=== PATIENT | female | born 1960 | race Caucasian/White ===

== ENCOUNTER 2019-07-01 22:25 | Emergency (ER) | payer BC ==
[2019-07-01] MEDS ORDERED: Aspirin 81 MG Tab.Chew PO ONE (22:51)
--- NOTE | 2019-07-01 22:53 | EDM.PDOC ---
ED HPI GENERAL MEDICAL PROBLEM - General Chief Complaint: Abdominal Pain Stated Complaint: CHEST PAIN SOME PAIN ON RIGHT SIDE Time Seen by Provider: 07/01/19 22:46 Source of Information: Reports: Patient, Family, Old Records, RN Notes Reviewed History Limitations: Reports: No Limitations - History of Present Illness INITIAL COMMENTS - FREE TEXT/NARRATIVE: 58-year-old female presents emergency department today complaint of epigastric pain, she states the pain is been going on and off for the last 24 hours yesterday did have some chest pain took some Mylanta which helped her sleep through the night however the pain has returned she finds no relationship to food no history of heart troubles no tobacco use family history mother in her 90s with a myocardial infarction Epigastric Pain Score (Numeric/FACES): 8 - Related Data Allergies Allergy/AdvReac Type Severity Reaction Status Date / Time tetracycline [Tetracycline] Allergy Chest Verified 07/01/19 22:37 Tightness Home Meds: Home Meds Losartan [Cozaar] 50 mg PO DAILY 07/01/19 [History] Past Medical History Cardiovascular History: Reports: Hypertension [employer] History: Reports: - Infectious Disease History Infectious Disease History: Reports: Other (See Below) Other Infectious Disease History: states unknown Social & Family History - Tobacco Use Smoking Status *Q: Never Smoker - Caffeine Use Caffeine Use: Reports: Coffee - Recreational Drug Use Recreational Drug Use: No ED ROS GENERAL - Review of Systems Review Of Systems: See Below Constitutional: Reports: No Symptoms. Denies: Diaphoresis HEENT: Reports: No Symptoms Respiratory: Reports: No Symptoms Cardiovascular: Reports: Chest Pain GI/Abdominal: Reports: Abdominal Pain. Denies: Nausea ED EXAM, GENERAL - Physical Exam Exam: See Below Exam Limited By: No Limitations General Appearance: Alert, WD/WN, No Apparent Distress Throat/Mouth: No Airway Compromise Neck: Normal Inspection, Supple, Non-Tender, Full Range of Motion Respiratory/Chest: No Respiratory Distress, Lungs Clear, Normal Breath Sounds, No Accessory Muscle Use, Chest Non-Tender Cardiovascular: Regular Rate, Rhythm, No Murmur GI/Abdominal: Soft, Tender (Tender epigastric region) Course - Vital Signs Last Recorded V/S: Last Vital Signs Temp 98.6 F 07/01/19 22:30 Pulse 70 07/01/19 23:43 Resp 16 07/01/19 23:43 BP 134/76 07/01/19 23:43 Pulse Ox 97 07/01/19 23:43 - Orders/Labs/Meds Orders: Active Orders 24 hr Category Date Time Status Cardiac Monitoring [RC] .As Directed Care 07/01/19 22:51 Active EKG Documentation Completion [RC] ASDIRECTED Care 07/01/19 22:51 Active EKG 12 Lead [EK] Stat Ther 07/01/19 22:51 Ordered Labs: Laboratory Tests 07/01/19 07/01/19 07/02/19 Range/Units 22:55 22:55 00:20 WBC 5.3 (4.5-11.0) K/uL RBC 4.20 (3.30-5.50) M/uL Hgb 12.1 (12.0-15.0) g/dL Hct 37.3 (36.0-48.0) % MCV 89 (80-98) fL MCH 29 (27-31) pg MCHC 32 (32-36) % Plt Count 233 (150-400) K/uL Neut % (Auto) 67 H (36-66) % Lymph % (Auto) 24 (24-44) % [place] % (Auto) 8 H (2-6) % Eos % (Auto) 1 L (2-4) % Baso % (Auto) 0 (0-1) % Sodium 143 (140-148) mmol/L Potassium 3.4 L (3.6-5.2) mmol/L Chloride 106 (100-108) mmol/L Carbon Dioxide 28 (21-32) mmol/L Anion Gap 12.4 (5.0-14.0) mmol/L BUN 14 (7-18) mg/dL Creatinine 0.9 (0.6-1.0) mg/dL Est Cr Clr Drug Dosing 49.32 mL/min Estimated GFR (MDRD) > 60 (>60) Glucose 140 H (74-106) mg/dL Calcium 9.1 (8.5-10.1) mg/dL Total Bilirubin 0.3 (0.2-1.0) mg/dL AST 18 (15-37) U/L ALT 25 (12-78) U/L Alkaline Phosphatase 64 (46-116) U/L Troponin I < 0.017 (0.000-0.056) ng/mL Total Protein 6.8 (6.4-8.2) g/dL Albumin 3.9 (3.4-5.0) g/dL Globulin 2.9 (2.3-3.5) g/dL Albumin/Globulin Ratio 1.3 (1.2-2.2) Lipase 147 (73-393) U/L Meds: Medications Discontinued Medications Generic Name Dose Route Start Last Admin Trade Name Padmini PRN Reason Stop Dose Admin Aspirin 324 mg 07/01/19 22:51 07/01/19 23:09 Aspirin PO 07/01/19 22:52 324 mg ONETIME ONE Administration Al Hydroxide/Mg Hydroxide 15 0 ml 07/02/19 00:16 07/02/19 00:21 ml/ Lidocaine HCl 15 ml PO 07/02/19 00:17 30 ml ONETIME ONE Administration Departure - Departure Time of Disposition: 00:53 Disposition: Home, Self-Care 01 Condition: Fair Clinical Impression: Abdominal pain Qualifiers: Abdominal location: epigastric Qualified Code(s): R10.13 - Epigastric pain Referrals: Becky Bernal CNM [Primary Care Provider] - Forms: ED Department Discharge Additional Instructions: Recommend avoiding fatty foods, please report to the out patient radiology for your ultrasound on Saturday I will contact you with results on Saturday evening - My Orders Last 24 Hours: My Active Orders 07/01/19 22:51 Cardiac Monitoring [RC] .As Directed EKG Documentation Completion [RC] ASDIRECTED EKG 12 Lead [EK] Stat - Assessment/Plan Last 24 Hours: My Active Orders 07/01/19 22:51 Cardiac Monitoring [RC] .As Directed EKG Documentation Completion [RC] ASDIRECTED EKG 12 Lead [EK] Stat Plan: Assessment Acuity = acute Site and laterality = epigastric pain Etiology = suspicious for underlying gallbladder disease Manifestations = none Location of injury = Home Lab values = CBC, CMP, troponin, lipase all within normal limits EKG demonstrates normal sinus rhythm chest x-ray unremarkable Plan She had good relief with the GI cocktail provided she is set up for an ultrasound on Saturday at which time I will contact her with the results for further evaluation This note was dictated using [employer] voice recognition software please call with any questions on syntax or grammar.
[2019-07-01 23:45] VITALS: BP 134/76; PULSE 70
--- NOTE | 2019-07-01 23:49 | CRLCR ---
INDICATION: CHEST PAIN TECHNIQUE: Chest 2 views. COMPARISON: None. FINDINGS: Cardiovascular and mediastinum: Heart size and vasculature are normal in caliber and appearance. Mediastinum is within normal limits. Lungs and pleural spaces: Lungs are clear. No sign of infiltrate or mass. No sign of pleural effusion. No pneumothorax. Bones and soft tissues: NoScoliosis. IMPRESSION: Unremarkable chest. Dictated by: Raymundo Hall MD @ 07/01/2019 23:47:38 (Electronically Signed)
[2019-07-02] MEDS ORDERED: Alum Hydrox/Mag Hydrox/Simeth 15 ML, Lidocaine 2% 15 ML PO ONE ×2 (00:16)
== END 2019-07-02 01:10 | disposition home or self-care (01) ==
LOC: JP.ED 22:25
DX: R10.13 Epigastric pain (principal); I10 Essential (primary) hypertension; Z88.1 Allergy status to other antibiotic agents; Z79.899 Other long term (current) drug therapy
CPT/HCPCS: 36415; 71046; 80053; 83690; 84484; 85025; 93005; 99285; A9270

== ENCOUNTER 2019-10-09 08:26 | Day surgery (SDC) | payer BC ==
[2019-10-09] MEDS ORDERED: Propofol 200 MG/20 ML SDV ONE ×2 (08:40→11:24)
[2019-10-09] MEDS ORDERED: fentaNYL 100 MCG/2 ML SDV ONE (08:40)
[2019-10-09] MEDS ORDERED: Midazolam 1 MG/ML 2 ML SDV ONE (08:41)
[2019-10-09] MEDS: Dextrose 5%-Lactated Ringers 1,000 ML IV SCH ×2 (08:52→11:52)
[2019-10-09 12:30] VITALS: PULSE 74
[2019-10-09 13:12] VITALS: BP 118/70
--- NOTE | 2019-10-19 12:32 | OR ---
DATE OF PROCEDURE: 10/09/2019 SURGEON: Lexx Pineda MD PREOPERATIVE DIAGNOSIS: Indications for screening colonoscopy. POSTOPERATIVE DIAGNOSIS: Uncomplicated diverticulosis involving left transverse colon. OPERATIVE PROCEDURE: Flexible colonoscopy. ANESTHESIA: IV sedation. INDICATION FOR PROCEDURE: This is a 58-year-old female presenting for screening colonoscopy. She does not have any family or personal history of colonic neoplasia. Plan is to proceed with colonoscopy, biopsies, and/or polypectomy as indicated. Potential risks including bleeding and perforation were discussed, and the patient wishes to proceed. DETAILS OF PROCEDURE: The patient was taken to the operating room and placed in a left lateral decubitus position. IV sedation was administered, after which the initial digital rectal exam was performed and was unremarkable. The colonoscope was then passed into the rectum with retroflexion revealing uncomplicated hemorrhoidal columns. The scope was eventually passed to the level of the cecum. The prep was fairly good. There was some scattered diverticulosis within the left and transverse colon. This has otherwise been uncomplicated. Otherwise, there were no areas of colitis, and no areas of polyps or other signs of neoplasia. The scope was then withdrawn, the above findings reconfirmed, and the procedure concluded. There were no evident complications. The patient was taken to the recovery room in satisfactory condition. Recommendation on this case would be repeat colonoscopy in 10 years. Lexx Pineda MD /[id number]
== END 2019-10-09 13:16 | disposition home or self-care (01) ==
LOC: JP.SDS 08:26
PROVIDERS: ATTEND Surgery
DX: Z12.11 Encounter for screening for malignant neoplasm of colon (principal)
CPT/HCPCS: G0121; J2250; J2704; J3010; J7121

== ENCOUNTER 2022-05-21 10:25 | Emergency (ER) | payer BC ==
[2022-05-21 11:43] LABS: ESTIMATED GFR 72 mL/min (>60); TROPONIN I HIGH SENSITIVITY 6.6 pg/mL (<=60.3)
[2022-05-21] MEDS ORDERED: Sodium Chloride 0.9% 10 ML Syringe FLUSH PRN ×2 (13:01→13:15)
[2022-05-21] MEDS ORDERED: Iopamidol 755 Mg/ML 100 ML Bottle IV SCH (13:15)
[2022-05-21] MEDS ORDERED: Sodium Chloride 0.9% 1,000 ML IV SCH (13:15)
[2022-05-21] MEDS ORDERED: Sodium Chloride 0.9% 75 ML IV SCH (13:15)
[2022-05-21 13:42] VITALS: BP 154/73; PULSE 84
== END 2022-05-21 15:39 | disposition home or self-care (01) ==
LOC: JP.ED 10:25
DX: R55 Syncope and collapse (principal); I10 Essential (primary) hypertension; Z88.1 Allergy status to other antibiotic agents; Z79.899 Other long term (current) drug therapy
CPT/HCPCS: 36415; 70450; 70496; 70498; 80053; 81001; 83605; 84484; 85025; 96360; 96361; 99285; J3490; J7030

== ENCOUNTER 2022-06-08 18:30 | Emergency (ER) | payer BC ==
[2022-06-08] MEDS ORDERED: Aspirin 81 MG Tab.Chew PO ONE (19:16)
[2022-06-08 19:52] LABS: TROPONIN I HIGH SENSITIVITY 6.5 pg/mL (<=60.3)
[2022-06-08 20:04] VITALS: BP 127/66; PULSE 72
== END 2022-06-08 20:46 | disposition home or self-care (01) ==
LOC: JP.ED 18:30
DX: R07.89 Other chest pain (principal); I10 Essential (primary) hypertension; Z88.1 Allergy status to other antibiotic agents; Z79.82 Long term (current) use of aspirin; Z79.899 Other long term (current) drug therapy
CPT/HCPCS: 36415; 71046; 80048; 84484; 85025; 93005; 99285; A9270

== ENCOUNTER 2025-06-21 10:33 | Emergency (ER) | payer MEDICARE, BC ==
[2025-06-21 13:25] VITALS: BP 128/73; PULSE 78
== END 2025-06-21 13:21 | disposition home or self-care (01) ==
LOC: JP.ED 10:33
DX: R07.9 Chest pain, unspecified (principal); I10 Essential (primary) hypertension; E78.00 Pure hypercholesterolemia, unspecified; Z86.16 Personal history of COVID-19; Z79.899 Other long term (current) drug therapy; Z79.82 Long term (current) use of aspirin; Z88.2 Allergy status to sulfonamides
CPT/HCPCS: 36415; 71045; 71045-26; 84484; 93005; 99284; 99285